=== PATIENT | female | born 1990 | race American Indian/Alaskan Native ===

== ENCOUNTER 2017-10-22 01:33 | Emergency (ER) | payer OTHER ==
[2017-10-22 03:23] VITALS: BP 131/86
--- NOTE | 2017-10-22 04:11 | Emergency Department Report ---
HPI - General Chief Complaint: Dental/Oral Time Seen by Provider: 10/22/17 03:54 - HPI HPI: The patient is a 27-year-old male who presents to ED complaining of 7/10 pain in the right side of his mouth x 7days . Patient states that the pain started 7 days ago and has increased in severity over the last 2-3 days. The pain is not affected with eating Patient states the pain is alleviated initially with pain medication but comes back. Patient states that it radiates towards her ear. Patient describes a as a throbbing, pressure-like sensation. Patient states otherwise well and has no other complaints. Patient has had no fevers and no chills. No chest pain, no shortness of breath. No abdominal pain. No shortness of breath or recent trauma to the face. ED Past Medical Hx - Past Medical History Hx Hypertension: Yes (NONCOMPLIANT WITH MEDS) Hx Diabetes: No Hx Deep Vein Thrombosis: No Hx Renal Disease: No Hx Sickle Cell Disease: No Hx Seizures: No Hx Asthma: No Hx HIV: No - Surgical History Additional Surgical History: right knee reconstructed 2008. . SKIN GRAFTS LEFT FOREARM AND CHEST - Social History Smoking Status: Current Some Day Smoker Substance Use Type: None - Medications Home Medications: Home Medications Medication Instructions Recorded Confirmed Last Taken Type metroNIDAZOLE [Flagyl] 500 mg PO Q12HR #20 tab 12/12/15 Unknown Rx Amoxicillin [Trimox CAP] 500 mg PO BID #20 capsule 10/22/17 Unknown Rx Ibuprofen [Motrin 800 MG tab] 800 mg PO TID #30 tablet 10/22/17 Unknown Rx ED Review of Systems ROS: Stated complaint: R. SIDE JAW PAIN Other details as noted in HPI Constitutional: denies: chills, fever Eyes: denies: eye pain, eye discharge, vision change ENT: denies: ear pain, throat pain Respiratory: denies: cough, shortness of breath, wheezing Cardiovascular: denies: chest pain, palpitations Endocrine: no symptoms reported Gastrointestinal: denies: abdominal pain, nausea, diarrhea Genitourinary: denies: urgency, dysuria, discharge Musculoskeletal: denies: back pain, joint swelling, arthralgia Skin: denies: rash, lesions Neurological: denies: headache, weakness, paresthesias Psychiatric: denies: anxiety, depression Hematological/Lymphatic: denies: easy bleeding, easy bruising Physical Exam - Physical Exam Vital Signs: Vital Signs 10/22/17 03:17 Temperature 98.5 F Pulse Rate 78 Blood Pressure 131/86 O2 Sat by Pulse 100 Oximetry Physical Exam: GENERAL: Alert and oriented x3, no apparent distress, Normal Gait, atraumatic. HEAD: Head is normocephalic and a-traumatic. EYES: Extra ocular muscles are intact. Pupils are equal, round, and reactive to light and accommodation. EARS: symetrical, atraumatic, non tender, ear canal clear and moderate cerumen, tympanic membrance non inflamed. gross auditory nml bilaterally. NOSE: Nose symetrical, Nontender,Nares appeared normal. MOUTH:Mouth is well hydrated and without lesions. Tonsils nonerythematous or swollen, Uvula midline, Tongue not elevated. Mucous membranes are moist. Posterior pharynx clear, no exudate or lesions. Patent airways. No bleeding in the Commons, no change of enlargement, tenderness to palpation of the gingiva tooth #30. NECK: Supple. Non edematous, No lymphadenopathy or thyromegaly. LUNGS: Symetrical with respiration, No wheezing, no rales or crackles, CTAB. HEART: S1, S2 present, regular rate and rhythm without murmur, no rubs, no gallops. Non tender to palpation SKIN: Warm and dry, No lesions, No ulceration or induration present. ED Course Vital Signs 10/22/17 03:17 Temperature 98.5 F Pulse Rate 78 Blood Pressure 131/86 O2 Sat by Pulse 100 Oximetry ED Medical Decision Making - Medical Decision Making 27-year-old female who presents with left-sided Facial pain secondary to odontogenic caries ED course: Patient received 1000 mg of amoxicillin, Odontogenic infection versus ear infection. Based upon history and physical examination, pain is a result of an infection of tooth number 30 and that the pain Pt feels on the right side of his face and towards the ear is referred pain from this infectious process. Pt has no evidence of acute impending airway compromise. At this point, patient will be discharged home on some antibiotics and pain trial, she will do well with an outpatient course of antibiotics. Follow up with the Dental Clinic as referred Vital signs are normal patient is in no acute distress. Pt had an effect uneventful ED stay Critical care attestation.: If time is entered above; I have spent that time in minutes in the direct care of this critically ill patient, excluding procedure time. ED Disposition Clinical Impression: Pain, dental Disposition: DC- TO HOME OR SELFCARE Is pt being admited?: No Does the pt Need Aspirin: No Condition: Stable Instructions: Toothache (ED), Dental Caries (ED) Prescriptions: Amoxicillin [Trimox CAP] 500 mg PO BID #20 capsule Ibuprofen [Motrin 800 MG tab] 800 mg PO TID #30 tablet Referrals: PRIMARY CARE, [Primary Care Provider] - 3-5 Days [facility] [Outside] - 3-5 Days [facility] [Outside] - 3-5 Days Forms: Work/School Release Form(ED) Time of Disposition: 04:38
[2017-10-22] MEDS ORDERED: TRIMOX PO ONE (04:34)
[2017-10-22] MEDS ORDERED: MOTRIN PO ONE (04:35)
== END 2017-10-22 05:06 | disposition home or self-care (01) ==
LOC: ED 01:33
DX: K08.89 Other specified disorders of teeth and supporting structures (principal); I10 Essential (primary) hypertension; F17.200 Nicotine dependence, unspecified, uncomplicated
CPT/HCPCS: 99282

== ENCOUNTER 2018-07-12 06:59 | Outpatient (CLI) | payer OTHER ==
[2018-07-12 08:13] LABS: Bilirubin,Urine NEG (Negative); Blood,Urine NEG (Negative); Color,Urine Yellow (Yellow); Protein,Urine <15 mg/dL mg/dL (Negative); Urobilinogen,Urine < 2.0 mg/dL (<2.0)
[2018-07-12] MEDS ORDERED: NITRATEST PAPER MC NR (09:00)
[2018-07-12] MEDS ORDERED: LACTATED RINGERS 500 ML IV ONE (09:00)
[2018-07-12 09:57] VITALS: BP 128/72
--- NOTE | 2018-07-12 16:38 | Ultrasound Report ---
COMPLETE OB ULTRASOUND: Leaking fluid Gestation: Talbot Position: Cephalic Amniotic Fluid: Adequate for gestation Placenta: Anterior Placental Grade: To Heart Rate: 149 BPM Cervical length: 3.3 cm (Normal > 3 cm) BPD: 4.7 cm = 20 w 0 d HC: 16.5 cm = 19 w 1 d AC: 14.8 cm = 20 w 1 d FL: 3.2 cm = 20 w 0 d HC/AC Ratio: 1.11 Cephalic Index: A 3.9 Estimated Weight: 3-4 grams LMP: 02/20/18 Clinical age = 20 w 2 d EDC: 11/27/18 US Gest. Age = 19 w 6 d EDC: 11/30/18 Technologist notes free fluid anterior to bladder and dilated vessels in the right maternal adnexa.
== END 2018-07-12 09:50 | disposition home or self-care (01) ==
LOC: TRG 06:59
PROVIDERS: ATTEND Obstetrics & Gynecology
DX: O46.92 Antepartum hemorrhage, unspecified, second trimester (principal); O16.2 Unspecified maternal hypertension, second trimester; O99.332 Smoking (tobacco) complicating pregnancy, second trimester; O26.892 Other specified pregnancy related conditions, second trimester; K21.9 Gastro-esophageal reflux disease without esophagitis; Z3A.20 20 weeks gestation of pregnancy
CPT/HCPCS: 59025; 76805; 81001; 96360; J7120

== ENCOUNTER 2018-07-21 16:22 | Outpatient (CLI) | payer OTHER ==
[2018-07-21 16:53] VITALS: BP 124/77
[2018-07-21] MEDS ORDERED: LACTATED RINGERS 500 ML IV ONE (16:58)
--- NOTE | 2018-07-22 17:03 | Event Note ---
Date: 07/22/18 28 year old female at 21 weeks, 4 days gestation presented to L&D triage with complaint of mucous discharge and intermittent abdominal pain. Patient denies leaking of fluid or vaginal bleeding. Patient denies urinary symptoms. No contractions noted. FHR 150, AGA. Cervix closed and thick; no discharge, LOF, or VB noted. Abdominal pain consistent with round ligament pain. Patient hydrated with IV fluids. Urinalysis negative. Comfort measures discussed with patient. Strip reviewed by Dr. Parikh and order to D/C patient to home by Dr. Parikh with instructions to follow up at [facility].
== END 2018-07-21 18:10 | disposition home or self-care (01) ==
LOC: TRG 16:22
PROVIDERS: ATTEND Obstetrics & Gynecology
DX: O47.02 False labor before 37 completed weeks of gestation, second trimester (principal); O10.012 Pre-existing essential hypertension complicating pregnancy, second trimester; O26.892 Other specified pregnancy related conditions, second trimester; K21.9 Gastro-esophageal reflux disease without esophagitis; Z3A.21 21 weeks gestation of pregnancy; Z87.891 Personal history of nicotine dependence
CPT/HCPCS: 59025

== ENCOUNTER 2019-04-15 14:28 | Emergency (ER) | payer OTHER ==
[2019-04-15 14:36] VITALS: BP 155/102
--- NOTE | 2019-04-15 14:38 | Emergency Department Report ---
Stated Complaint: ABSCESS/MOUTH PAIN Time Seen by Provider: 04/15/19 14:34 - HPI History of Present Illness: This is a 28 y.o. female that presents to the ER with dental pain. Patient states her filling to a tooth came out in November. Patient states she bought an [id number] kit to fill cavity on last Tuesday. She noticed pain last Tuesday with bubbling around tooth. She reports pain as 10/10 on pain scale. - Exam Vital Signs: Vital Signs 04/15/19 14:30 Temperature 98.1 F Pulse Rate 65 Respiratory 18 Rate Blood Pressure 155/102 O2 Sat by Pulse 99 Oximetry MSE screening note: Focused history and physical exam performed. Due to findings the following was ordered: ED Disposition for MSE Condition: Stable
[2019-04-15] MEDS ORDERED: NORCO 5/325 PO ONE (14:44)
[2019-04-15] MEDS ORDERED: CATAPRES PO ONE (14:45)
[2019-04-15] MEDS ORDERED: NORCO 5/325 ONE (14:45)
--- NOTE | 2019-04-15 15:27 | Emergency Department Report ---
ED ENT HPI - General Chief complaint: Dental/Oral Stated complaint: ABSCESS/MOUTH PAIN Time Seen by Provider: 04/15/19 14:34 Source: patient Mode of arrival: Ambulatory Limitations: No Limitations - History of Present Illness Initial comments: This is a 28 year old female that presents to the emergency room with dental pain. Patient states her filling to tooth #11 came out in November. Patient states she purchased an [id number] dental cavity kit on last Tuesday. She noticed pain last Tuesday with bubbling around tooth. She reports pain as 10/10 on pain scale and worse with eating. She attempt to see a dentist a few months ago and couldn't bee seen due to insurance issue. Denies difficulty swallowing, enlarged tongue, sore throat. MD complaint: tooth pain Onset/Timin -: week(s) Location: tooth # (11) Severity: severe Severity scale (0 -10): 10 Quality: constant, other (throbbing) Consistency: constant Improves with: none Worsens with: eating Context- Dental: poor dental care Associated Symptoms: gum swelling, toothache. denies: fever, cough, pain with swallowing, sore throat, tinnitus, hearing loss, discharge from ear, rhinorrhea - Related Data Home Medications Medication Instructions Recorded Confirmed Last Taken Labetalol [Normodyne TAB] 100 mg PO DAILY 07/12/18 11/15/18 11/07/18 09:00 1 Cholecalciferol (Vitamin D3) 1 cap PO 1XW 07/21/18 11/15/18 1 Week Ago [Vitamin D3] ~07/14/18 Cetirizine HCl [ZyrTEC] 10 mg PO DAILY 11/15/18 11/15/18 11/14/18 09:00 1 Ferrous Sulfate [Feosol 325 MG tab] 1 tab PO DAILY 11/15/18 11/15/18 11/14/18 09:00 1 Vit-Fe Fumar-FA [ 1 tab PO QDAY 11/15/18 11/15/18 11/14/18 09:00 Vitamin] 1 Pyridoxine HCl [Vitamin B-6] 100 mg PO DAILY 11/15/18 11/15/18 11/14/18 09:00 Previous Rx's Medication Instructions Recorded Last Taken Type Ibuprofen [Motrin] 800 mg PO Q8HR PRN #30 tablet 11/16/18 Unknown Rx oxyCODONE /ACETAMINOPHEN [Percocet 1 tab PO Q4HR #14 tab 11/16/18 Unknown Rx 5/325] Labetalol [Labetalol 100mg TAB] 100 mg PO BID #60 tablet 11/17/18 Unknown Rx Clindamycin [Clindamycin CAP] 300 mg PO Q8H #21 cap 04/15/19 Unknown Rx Naproxen [Naprosyn] 500 mg PO TID PRN #30 tablet 04/15/19 Unknown Rx traMADol [Ultram 50 MG tab] 50 mg PO Q6HR PRN #12 tablet 04/15/19 Unknown Rx Allergies Allergy/AdvReac Type Severity Reaction Status Date / Time No Known Allergies Allergy Verified 11/15/18 09:03 ED Dental HPI - General Chief complaint: Dental/Oral Stated complaint: ABSCESS/MOUTH PAIN Time Seen by Provider: 04/15/19 14:34 Source: patient Mode of arrival: Ambulatory Limitations: No Limitations - Related Data Home Medications Medication Instructions Recorded Confirmed Last Taken Labetalol [Normodyne TAB] 100 mg PO DAILY 07/12/18 11/15/18 11/07/18 09:00 1 Cholecalciferol (Vitamin D3) 1 cap PO 1XW 07/21/18 11/15/18 1 Week Ago [Vitamin D3] ~07/14/18 Cetirizine HCl [ZyrTEC] 10 mg PO DAILY 11/15/18 11/15/18 11/14/18 09:00 1 Ferrous Sulfate [Feosol 325 MG tab] 1 tab PO DAILY 11/15/18 11/15/18 11/14/18 09:00 1 Vit-Fe Fumar-FA [ 1 tab PO QDAY 11/15/18 11/15/18 11/14/18 09:00 Vitamin] 1 Pyridoxine HCl [Vitamin B-6] 100 mg PO DAILY 11/15/18 11/15/18 11/14/18 09:00 Previous Rx's Medication Instructions Recorded Last Taken Type Ibuprofen [Motrin] 800 mg PO Q8HR PRN #30 tablet 11/16/18 Unknown Rx oxyCODONE /ACETAMINOPHEN [Percocet 1 tab PO Q4HR #14 tab 11/16/18 Unknown Rx 5/325] Labetalol [Labetalol 100mg TAB] 100 mg PO BID #60 tablet 11/17/18 Unknown Rx Clindamycin [Clindamycin CAP] 300 mg PO Q8H #21 cap 04/15/19 Unknown Rx Naproxen [Naprosyn] 500 mg PO TID PRN #30 tablet 04/15/19 Unknown Rx traMADol [Ultram 50 MG tab] 50 mg PO Q6HR PRN #12 tablet 04/15/19 Unknown Rx Allergies Allergy/AdvReac Type Severity Reaction Status Date / Time No Known Allergies Allergy Verified 11/15/18 09:03 ED Review of Systems ROS: Stated complaint: ABSCESS/MOUTH PAIN Other details as noted in HPI Constitutional: denies: chills, fever ENT: dental pain. denies: ear pain, throat pain Respiratory: denies: cough, shortness of breath, wheezing Cardiovascular: denies: chest pain, palpitations Skin: denies: rash, lesions Neurological: denies: headache, weakness, paresthesias Psychiatric: denies: anxiety, depression ED Past Medical Hx - Past Medical History Hx Hypertension: Yes Hx Congestive Heart Failure: No Hx Diabetes: No Hx Deep Vein Thrombosis: No Hx Renal Disease: No Hx Sickle Cell Disease: No Hx Seizures: No Hx Asthma: No Hx COPD: No Hx HIV: No - Surgical History Additional Surgical History: right knee reconstructed 2008. . SKIN GRAFTS LEFT FOREARM AND CHEST - Social History Smoking Status: Never Smoker Substance Use Type: None - Medications Home Medications: Home Medications Medication Instructions Recorded Confirmed Last Taken Type Labetalol [Normodyne TAB] 100 mg PO DAILY 07/12/18 11/15/18 11/07/18 09:00 History 1 Cholecalciferol (Vitamin D3) 1 cap PO 1XW 07/21/18 11/15/18 1 Week Ago History [Vitamin D3] ~07/14/18 Cetirizine HCl [ZyrTEC] 10 mg PO DAILY 11/15/18 11/15/18 11/14/18 09:00 History 1 Ferrous Sulfate [Feosol 325 MG tab] 1 tab PO DAILY 11/15/18 11/15/18 11/14/18 09:00 History 1 Vit-Fe Fumar-FA [ 1 tab PO QDAY 11/15/18 11/15/18 11/14/18 09:00 History Vitamin] 1 Pyridoxine HCl [Vitamin B-6] 100 mg PO DAILY 11/15/18 11/15/18 11/14/18 09:00 History Ibuprofen [Motrin] 800 mg PO Q8HR PRN #30 tablet 11/16/18 Unknown Rx oxyCODONE /ACETAMINOPHEN [Percocet 1 tab PO Q4HR #14 tab 11/16/18 Unknown Rx 5/325] Labetalol [Labetalol 100mg TAB] 100 mg PO BID #60 tablet 11/17/18 Unknown Rx Clindamycin [Clindamycin CAP] 300 mg PO Q8H #21 cap 04/15/19 Unknown Rx Naproxen [Naprosyn] 500 mg PO TID PRN #30 tablet 04/15/19 Unknown Rx traMADol [Ultram 50 MG tab] 50 mg PO Q6HR PRN #12 tablet 04/15/19 Unknown Rx ED Physical Exam - General Limitations: No Limitations General appearance: alert, in no apparent distress - ENT ENT exam: Present: normal orophraynx, mucous membranes moist, other (dental cares to lateral side of tooth #11, tenderness, mucosal swelling, no palpable cyst or nodule) - Neck Neck exam: Present: normal inspection - Respiratory Respiratory exam: Present: normal lung sounds bilaterally. Absent: respiratory distress - Cardiovascular Cardiovascular Exam: Present: regular rate, normal rhythm. Absent: systolic murmur, diastolic murmur, rubs, gallop - Neurological Exam Neurological exam: Present: alert, oriented X3 - Psychiatric Psychiatric exam: Present: normal affect, normal mood - Skin Skin exam: Present: warm, dry, intact, normal color. Absent: rash ED Course Vital Signs 04/15/19 04/15/19 14:30 14:49 Temperature 98.1 F Pulse Rate 65 65 Respiratory 18 Rate Blood Pressure 155/102 155/102 O2 Sat by Pulse 99 Oximetry ED Medical Decision Making - Medical Decision Making This patient was seen by this provider. PMH of HTN. Blood pressure elevated on arrival. Given norco and clonidine once while ER. Patient states she didn't take her blood pressure medication today. She is asymptomatic. Findings are susceptible of dental caries to #11. Blood pressure 138/98, HR 68 and pain improved. Start clindamycin, naproxen, and tramadol. Referral to Emergency dental clinics for continued care. Patient discharged home stable. Critical care attestation.: If time is entered above; I have spent that time in minutes in the direct care of this critically ill patient, excluding procedure time. ED Disposition Clinical Impression: Asymptomatic hypertension, Dental caries Disposition: TO HOME OR SELFCARE Is pt being admited?: No Does the pt Need Aspirin: No Condition: Stable Instructions: Dental Caries (ED), Hypertension (ED), Toothache (ED) Additional Instructions: Complete full course of antibiotics as prescribed. Take pain medication every 6 to 8 hours as needed for pain. Follow up with a dentist from the referrals list below. Prescriptions: Clindamycin [Clindamycin CAP] 300 mg PO Q8H #21 cap Naproxen [Naprosyn] 500 mg PO TID PRN #30 tablet PRN Reason: Pain, Moderate (4-6) traMADol [Ultram 50 MG tab] 50 mg PO Q6HR PRN #12 tablet PRN Reason: Pain , Severe (7-10) Referrals: DARIO GONZALEZ MD [Primary Care Provider] - 3-5 Days [facility] [Outside] - 3-5 Days [facility] [Outside] - 3-5 Days [facility] [Outside] - 3-5 Days Time of Disposition: 15:54
== END 2019-04-15 15:48 | disposition home or self-care (01) ==
LOC: ED 14:28
DX: K02.9 Dental caries, unspecified (principal); I10 Essential (primary) hypertension
CPT/HCPCS: 99282

== ENCOUNTER 2019-07-12 07:52 | Emergency (ER) | payer OTHER ==
[2019-07-12 08:00] VITALS: BP 153/106
--- NOTE | 2019-07-12 08:41 | Emergency Department Report ---
ED General Adult HPI - General Chief complaint: High BP Stated complaint: HYPERTENSION Time Seen by Provider: 07/12/19 08:13 Source: patient Mode of arrival: Ambulatory Limitations: No Limitations - History of Present Illness Initial comments: Mrs. Lala is a 29-year-old female with history of hypertension who presents with cough sore throat wheezing. She also requires a refill of her blood pressure medication. She has chest pain with cough. Generalized malaise. Denies fever. Dry cough. Chest pain with cough. No chest pain without cough. No chest pain at rest. No previous history of asthma wheezing. She does not smoke tobacco. However her fianc does smoke tobacco in the home. She is followed at [facility]. She has been on labetalol since her delivery of her child in October. She does not plan to the become in the near future. -: Gradual Location: head, chest Radiation: non-radiation Severity scale (0 -10): 5 Quality: aching Consistency: intermittent Improves with: none Worsens with: none Associated Symptoms: cough - Related Data Home Medications Medication Instructions Recorded Confirmed Last Taken Labetalol [Normodyne TAB] 100 mg PO DAILY 07/12/18 11/15/18 11/07/18 09:00 1 Cholecalciferol (Vitamin D3) 1 cap PO 1XW 07/21/18 11/15/18 1 Week Ago [Vitamin D3] ~07/14/18 Cetirizine HCl [ZyrTEC] 10 mg PO DAILY 11/15/18 11/15/18 11/14/18 09:00 1 Ferrous Sulfate [Feosol 325 MG tab] 1 tab PO DAILY 11/15/18 11/15/18 11/14/18 09:00 1 Vit-Fe Fumar-FA [ 1 tab PO QDAY 11/15/18 11/15/18 11/14/18 09:00 Vitamin] 1 Pyridoxine HCl [Vitamin B-6] 100 mg PO DAILY 11/15/18 11/15/18 11/14/18 09:00 Previous Rx's Medication Instructions Recorded Last Taken Type Ibuprofen [Motrin] 800 mg PO Q8HR PRN #30 tablet 11/16/18 Unknown Rx oxyCODONE /ACETAMINOPHEN [Percocet 1 tab PO Q4HR #14 tab 11/16/18 Unknown Rx 5/325] Labetalol [Labetalol 100mg TAB] 100 mg PO BID #60 tablet 11/17/18 Unknown Rx Clindamycin [Clindamycin CAP] 300 mg PO Q8H #21 cap 04/15/19 Unknown Rx Naproxen [Naprosyn] 500 mg PO TID PRN #30 tablet 04/15/19 Unknown Rx traMADol [Ultram 50 MG tab] 50 mg PO Q6HR PRN #12 tablet 04/15/19 Unknown Rx hydroCHLOROthiazide [HCTZ] 25 mg PO QDAY 30 Days #30 tablet 07/12/19 Unknown Rx Allergies Allergy/AdvReac Type Severity Reaction Status Date / Time No Known Allergies Allergy Verified 07/12/19 07:53 ED Review of Systems ROS: Stated complaint: HYPERTENSION Other details as noted in HPI Comment: All other systems reviewed and negative Constitutional: denies: fever Eyes: denies: as per HPI ENT: throat pain Respiratory: cough, wheezing Gastrointestinal: denies: abdominal pain ED Past Medical Hx - Past Medical History Previous Medical History?: Yes Hx Hypertension: Yes Hx Congestive Heart Failure: No Hx Diabetes: No Hx Deep Vein Thrombosis: No Hx Renal Disease: No Hx Sickle Cell Disease: No Hx Seizures: No Hx Asthma: No Hx COPD: No Hx HIV: No - Surgical History Past Surgical History?: Yes Additional Surgical History: right knee reconstructed 2008. . SKIN GRAFTS LEFT FOREARM AND CHEST - Social History Smoking Status: Never Smoker Substance Use Type: None - Medications Home Medications: Home Medications Medication Instructions Recorded Confirmed Last Taken Type Labetalol [Normodyne TAB] 100 mg PO DAILY 07/12/18 11/15/18 11/07/18 09:00 History 1 Cholecalciferol (Vitamin D3) 1 cap PO 1XW 07/21/18 11/15/18 1 Week Ago History [Vitamin D3] ~07/14/18 Cetirizine HCl [ZyrTEC] 10 mg PO DAILY 11/15/18 11/15/18 11/14/18 09:00 History 1 Ferrous Sulfate [Feosol 325 MG tab] 1 tab PO DAILY 11/15/18 11/15/18 11/14/18 09:00 History 1 Vit-Fe Fumar-FA [ 1 tab PO QDAY 11/15/18 11/15/18 11/14/18 09:00 History Vitamin] 1 Pyridoxine HCl [Vitamin B-6] 100 mg PO DAILY 11/15/18 11/15/18 11/14/18 09:00 History Ibuprofen [Motrin] 800 mg PO Q8HR PRN #30 tablet 11/16/18 Unknown Rx oxyCODONE /ACETAMINOPHEN [Percocet 1 tab PO Q4HR #14 tab 11/16/18 Unknown Rx 5/325] Labetalol [Labetalol 100mg TAB] 100 mg PO BID #60 tablet 11/17/18 Unknown Rx Clindamycin [Clindamycin CAP] 300 mg PO Q8H #21 cap 04/15/19 Unknown Rx Naproxen [Naprosyn] 500 mg PO TID PRN #30 tablet 04/15/19 Unknown Rx traMADol [Ultram 50 MG tab] 50 mg PO Q6HR PRN #12 tablet 04/15/19 Unknown Rx hydroCHLOROthiazide [HCTZ] 25 mg PO QDAY 30 Days #30 tablet 07/12/19 Unknown Rx ED Physical Exam - General Limitations: No Limitations General appearance: alert, in no apparent distress - Head Head exam: Present: atraumatic, normocephalic - Eye Eye exam: Present: normal appearance. Absent: scleral icterus, conjunctival injection - ENT ENT exam: Present: mucous membranes moist - Neck Neck exam: Present: normal inspection, full ROM. Absent: tenderness, meningismus - Respiratory Respiratory exam: Present: normal lung sounds bilaterally. Absent: respiratory distress, wheezes, rales, rhonchi - Cardiovascular Cardiovascular Exam: Present: regular rate, normal rhythm, normal heart sounds. Absent: systolic murmur, diastolic murmur, rubs, gallop - GI/Abdominal GI/Abdominal exam: Present: soft, normal bowel sounds. Absent: distended, tenderness - Extremities Exam Extremities exam: Present: normal inspection - Back Exam Back exam: Present: normal inspection - Neurological Exam Neurological exam: Present: alert, oriented X3 - Psychiatric Psychiatric exam: Present: normal affect, normal mood - Skin Skin exam: Present: warm, dry, intact, normal color. Absent: rash ED Course Vital Signs 07/12/19 07:57 Temperature 99 F Pulse Rate 69 Respiratory 16 Rate Blood Pressure 153/106 [Left] O2 Sat by Pulse 98 Oximetry ED Medical Decision Making - Medical Decision Making Mrs. Lala presents with URI with normal exam. I do not suspect bronchitis or pneumonia. Recommended [id number] treatment for URI symptoms. I have provided education regarding the uses of labetalol. I have changed her medication to hydrochlorothiazide in lieu of labetalol. She'll follow with her primary care physician for further treatment. Critical care attestation.: If time is entered above; I have spent that time in minutes in the direct care of this critically ill patient, excluding procedure time. ED Disposition Clinical Impression: Hypertension, Medication refill, Upper respiratory infection Disposition: TO HOME OR SELFCARE Is pt being admited?: No Does the pt Need Aspirin: No Condition: Stable Instructions: Hypertension (ED), Upper Respiratory Infection (ED) Additional Instructions: Please inform your primary care physician that you are starting a new medication as a substitute for labetalol. Prescriptions: hydroCHLOROthiazide [HCTZ] 25 mg PO QDAY 30 Days #30 tablet Forms: Work/School Release Form(ED)
== END 2019-07-12 09:02 | disposition home or self-care (01) ==
LOC: ED 07:52
DX: J06.9 Acute upper respiratory infection, unspecified (principal); I10 Essential (primary) hypertension
CPT/HCPCS: 99282